=== PATIENT | female | born 2000 | race Two or more races ===

== ENCOUNTER 2024-07-29 20:15 | Observation (INO) | payer BC, SELFPAY ==
[2024-07-29 20:27] VITALS: BP 110/72; PULSE 83; O2SAT 98
[2024-07-29 20:50] LABS: Collection Type, Urine Clean Catch
[2024-07-29 20:55] VITALS: TEMP 36.9
[2024-07-29 20:57] VITALS: BMI 34.9
[2024-07-29 21:08] LABS: Bacteria,Urine 3+; Bilirubin,Urine Negative (Negative); Blood,Urine 3+ (Negative); Clarity,Urine Turbid (Clear/Hazy); Color,Urine Colorless (Lt Yel-Yel); Glucose, Urine Negative (Negative); Ketones,Urine Negative (Negative); Leukocyte Esterase,Urine Positive (Negative); Nitrite,Urine Negative (Negative); Protein,Urine 1+ (Neg - Trace); RBC,Urine 2 /hpf (0-3); Specific Gravity,Urine 1.004 (1.001-1.035); Squamous Epithelial Cell,Urine 1 /hpf (0-5); Urobilinogen,Urine Negative mg/dL (0.0-1.0); WBC,Urine 165 /hpf (0-5)
--- NOTE | 2024-07-29 21:20 | XR_ITS ---
Examination: Complete OB ultrasound greater than 14 weeks Date and time of exam: July 29, 2024 2157 hrs. Indications: Vaginal bleeding and pelvic cramping beginning 8:00 PM today, labor evaluation Findings: Viable intrauterine single fetus with single amniotic sac Patient breech Cardiac motion 144 BPM Placenta posterior grade 1 Umbilical cord insertion seen Amniotic fluid index 13.6 cm spine anterior Cervix 3.3 cm Right ovary obscured by bowel gas Left ovary 2.8 x 1.8 x 1.6 cm arterial flow. Composite estimated gestational age based on BPD, head circumference, abdominal circumference, femur length is 19 weeks 2 days Estimated weight 278 g Survey of intracranial anatomy, spinal anatomy, abdominal anatomy, four-chamber heart performed with no abnormalities identified. Impression: Viable intrauterine gestation breech presentation Placenta posterior grade 1 no abruption.
[2024-07-29] MEDS: RINGERS LACTATED 1000 ML 1,000 ML 999 ML IV (21:55)
[2024-07-29] MEDS: cefTRIAXone 1,000 MG in SODIUM CHLORIDE 0.9% (P) 50 ML 100 MG IV (21:59)
== END 2024-07-29 23:35 | disposition home or self-care (01) ==
PROVIDERS: Admitting Provider Obstetrics & Gynecology; PCP Family Medicine; Visit Provider Student in an Organized Health Care Education/Training Program
DX: O26.852 Spotting complicating pregnancy, second trimester (principal); O26.892 Other specified pregnancy related conditions, second trimester; R25.2 Cramp and spasm; Z3A.19 19 weeks gestation of pregnancy; O32.1XX0 Maternal care for breech presentation, not applicable or unspecified
CPT/HCPCS: 59025; 59899; 76805; 81001; J0696; J7050; J7120

== ENCOUNTER 2024-10-11 23:23 | Observation (INO) | payer BC, SELFPAY ==
[2024-10-11 23:34] VITALS: BP 99/57; PULSE 86
[2024-10-11 23:47] VITALS: BP 99/57; PULSE 86; RESP 18; RESP 98; TEMP 36.8
[2024-10-11 23:50] VITALS: BMI 38.7
[2024-10-11 23:51] VITALS: BMI 38.7
[2024-10-12 00:24] VITALS: TEMP 36.8
== END 2024-10-12 00:05 | disposition home or self-care (01) ==
PROVIDERS: Admitting Provider Student in an Organized Health Care Education/Training Program; Visit Provider Student in an Organized Health Care Education/Training Program
DX: O46.93 Antepartum hemorrhage, unspecified, third trimester (principal); Z3A.30 30 weeks gestation of pregnancy
CPT/HCPCS: 59899

== ENCOUNTER 2024-10-28 14:28 | Observation (INO) | payer BC, SELFPAY ==
[2024-10-28 14:30] VITALS: BP 110/68; PULSE 95; RESP 100; RESP 16; TEMP 36.9
[2024-10-28 14:41] VITALS: BP 110/68; PULSE 95
[2024-10-28 14:54] VITALS: BP 110/68; PULSE 95; RESP 100; RESP 16; TEMP 36.9; O2SAT 100; BMI 39.3
[2024-10-28 14:59] LABS: Collection Type, Urine Clean Catch
[2024-10-28 15:06] LABS: Bilirubin,Urine Negative (Negative); Blood,Urine Negative (Negative); Clarity,Urine Clear (Clear/Hazy); Color,Urine Yellow (Lt Yel-Yel); Culture Indicated,Urine Contaminated; Glucose, Urine 3+ (Negative); Ketones,Urine Negative (Negative); Leukocyte Esterase,Urine Positive (Negative); Nitrite,Urine Negative (Negative); Protein,Urine Trace (Neg - Trace); RBC,Urine 2 /hpf (0-3); Specific Gravity,Urine 1.027 (1.001-1.035); Squamous Epithelial Cell,Urine 14 /hpf (0-5); WBC,Urine 12 /hpf (0-5)
[2024-10-28 16:27] VITALS: BP 119/74; PULSE 74
[2024-10-28 16:52] LABS: Collection Type, Urine Catheter; RBC,Urine 0 /hpf (0-3)
[2024-10-28 17:01] LABS: Bacteria,Urine Rare; Bilirubin,Urine Negative (Negative); Blood,Urine Negative (Negative); Clarity,Urine Clear (Clear/Hazy); Color,Urine Colorless (Lt Yel-Yel); Glucose, Urine Negative (Negative); Ketones,Urine Negative (Negative); Leukocyte Esterase,Urine Negative (Negative); Nitrite,Urine Negative (Negative); PH,Urine 7.5 (5.0-7.0); Protein,Urine Negative (Neg - Trace); Specific Gravity,Urine 1.004 (1.001-1.035); Squamous Epithelial Cell,Urine < 1 /hpf (0-5); Urobilinogen,Urine Negative mg/dL (0.0-1.0); WBC,Urine 1 /hpf (0-5)
== END 2024-10-28 17:53 | disposition home or self-care (01) ==
LOC: S4SX 14:29
PROVIDERS: Admitting Provider Obstetrics & Gynecology; Visit Provider Obstetrics & Gynecology
DX: O26.893 Other specified pregnancy related conditions, third trimester (principal); Z3A.32 32 weeks gestation of pregnancy; R10.30 Lower abdominal pain, unspecified; R11.0 Nausea
CPT/HCPCS: 59025; 59899; 81001; 87086

== ENCOUNTER 2024-12-05 17:05 | Observation (INO) | payer BC, SELFPAY ==
[2024-12-05] VITALS (13 sets, daily range): BP systolic 102–108; BP diastolic 55–68; PULSE 90–112; RESP 18–100; TEMP 36.8; O2SAT 85–100; BMI 41.7
[2024-12-05 17:53] LABS: ROM Kit Lot # 57807112
[2024-12-05 17:54] LABS: Swb Mxed in Solvent 1 min? Yes
[2024-12-05 17:55] LABS: ROM Swab Mixed By: YOUNB
[2024-12-05 18:01] LABS: Rupture of Fetal Membranes Negative (Negative)
== END 2024-12-05 18:25 | disposition home or self-care (01) ==
PROVIDERS: Admitting Provider Obstetrics & Gynecology; PCP Family Medicine; Visit Provider Obstetrics & Gynecology
DX: O26.893 Other specified pregnancy related conditions, third trimester (principal); Z3A.37 37 weeks gestation of pregnancy; M54.50 Low back pain, unspecified; R10.30 Lower abdominal pain, unspecified
CPT/HCPCS: 59025; 59899; 84112

== ENCOUNTER 2024-12-06 04:38 | Observation (INO) | payer BC, SELFPAY ==
[2024-12-06 04:43] VITALS: BP 132/67; PULSE 73; RESP 100; RESP 16; TEMP 36.8; BMI 41.7
[2024-12-06 04:55] VITALS: BP 132/67; PULSE 73; RESP 16; TEMP 36.8
--- NOTE | 2024-12-06 05:08 | ESPR_ITS ---
Documentation for date of: 12/06/24 OB Labor Progress Note Assessment and Plan Comments: Triage Note Neisha is a 24yo with SIUP at 38wk presenting to L&D for pelvic pressure and feels like baby is coming out . No lof, no vaginal bleeding. Normal movement. She was seen last night for similar concern- at that time, she also endorsed a single episode of loss of fluid earlier in the day so AmniSure was done which was negative and SCE was closed/thick/high. Current : This has been uncomplicated, she has had regular OB care with her OBGYN out of town. ROS negative other than what was described above. Vitals wnl, afebrile General: well developed, well nourished, no acute distress, conversant Cardiac: normal heart rate Lungs: breathing without distress Abdomen: soft, gravid, non-tender, no rebound or guarding Extremities: no pain with palpation of calves SCE: closed/thick/high per RN NST: Reactive, +accels, no decels, mod zac [place]: occasional ctx Bedside ultrasound by Dr. Fernandez: SIUP in cephalic presentation, +FCA, +FM, MVP 5.8cm, posterior placenta Assessment: Neisha is a 24yo with SIUP at 38wk with no evidence of labor based on SCE and toco. Vitals wnl, benign exam. Reassuring status. Plan: -Discussed findings and diagnosis with patient and support person, answered all questions to their apparent satisfaction. Discussed expectations for normal physiologic discomforts of such as pelvic pressure. -Continue routine follow up with OBGYN on Saturday as scheduled -Addressed patient concerns regarding size, discussed importance of decreasing ultra-processed carbs and added sugars, increasing protein/fiber and walking after meals -Discussed return precautions -Safe for discharge home at this time Sandy Fernandez MD
[2024-12-06 05:35] VITALS: TEMP 36.8
== END 2024-12-06 05:45 | disposition home or self-care (01) ==
PROVIDERS: Admitting Provider Obstetrics & Gynecology; Visit Provider Obstetrics & Gynecology
DX: O26.893 Other specified pregnancy related conditions, third trimester (principal); R10.2 Pelvic and perineal pain; Z3A.38 38 weeks gestation of pregnancy
CPT/HCPCS: 59025; 59899